=== PATIENT | male | born 1970 | race Caucasian/White ===

== ENCOUNTER 2019-12-17 08:20 | Day surgery (SDC) | payer OTHER, SELFPAY ==
[~2019-12-17] VITALS: Ht 175.3 cm; Wt 63.5 kg
[2019-12-17] MEDS ORDERED: diphenhydrAMINE 50 MG/ML VIAL ONE (10:07)
[2019-12-17] MEDS ORDERED: fentaNYL citrate 0.05 MG/ML VIAL ONE (10:07)
[2019-12-17] MEDS ORDERED: MIDAZOLAM 2 MG/2 ML VIAL ONE (10:07)
[2019-12-17] MEDS: MIDAZOLAM 2 MG/2 ML VIAL IVP ONE (10:09)
[2019-12-17] MEDS: fentaNYL citrate 0.05 MG/ML VIAL IVP ONE (10:10)
[2019-12-17] MEDS: LIDOCAINE 2% 100 MG/5 ML UJET TP ONE (10:11)
== END 2019-12-17 11:24 | disposition home or self-care (01) ==
LOC: MDS 08:20 → MFCC 09:19 → MDS 11:24
PROVIDERS: ATTEND Internal Medicine Gastroenterology
DX: Z12.11 Encounter for screening for malignant neoplasm of colon (principal); Z80.0 Family history of malignant neoplasm of digestive organs; I10 Essential (primary) hypertension; Z85.46 Personal history of malignant neoplasm of prostate; F17.200 Nicotine dependence, unspecified, uncomplicated; E03.9 Hypothyroidism, unspecified; Z20.828 Contact with and (suspected) exposure to other viral communicable diseases
CPT/HCPCS: 45378; J2250; J3010; U0003; J1200